=== PATIENT | male | born 1950 | race Caucasian/White ===

== ENCOUNTER 2018-10-07 06:42 | Day surgery (SDC) | payer MEDICARE, OTHER, MEDICAID ==
[2018-10-07] VITALS (7 sets, daily range): BP systolic 127–171; BP diastolic 65–88
[~2018-10-07] VITALS: Ht 188 cm; Wt 109.3 kg
[~2018-10-07 06:42] MED LIST: ASPI-10 PO; FOLI0.8T22 PO; FOLI1TAB16 PO; HYDR-3972 PO; LORA1TAB PO; PHO667C PO
[2018-10-07] MEDS ORDERED: normal saline 1000ml 1,000 ML IV SCH ×2 (07:10→08:31)
[2018-10-07] MEDS ORDERED: DOCU-28 PO (07:13)
[2018-10-07] MEDS ORDERED: ALLO100T PO (07:13)
[2018-10-07] MEDS ORDERED: SEVE800T8 PO (07:13)
[2018-10-07 08:14] LABS: ALBUMIN 3.3 G/DL (3.4-5.0); ANION GAP 11 (8-16); BLOOD UREA NITROGEN 28 MG/DL (7-18); BUN/CREATININE RATIO 3.2 (5.4-32.0); CALCIUM 8.4 MG/DL (8.5-10.1); CHLORIDE 100 MMOL/L (99-107); CREATININE 8.66 MG/DL (0.60-1.10); GLUCOSE 89 MG/DL (70-104); POTASSIUM 4.7 MMOL/L (3.5-5.1); SODIUM 141 MMOL/L (135-145); eGFR 6 ML/MIN
[2018-10-07 08:19] LABS: BASOPHILS % (AUTO) 0.3 % (0-1); EOSINOPHILS # (AUTO) 0.2 X10'3 (0-0.9); EOSINOPHILS % (AUTO) 2.2 % (0-6); LYMPHOCYTES # (AUTO) 1.6 X10'3 (1.1-4.8); LYMPHOCYTES % (AUTO) 20.1 % (21-51); MEAN CORPUSCULAR HEMOGLOBIN 31.3 PG (27.0-31.0); MEAN CORPUSCULAR HGB CONC 32.1 % (33.0-36.5); MEAN CORPUSCULAR VOLUME 97.3 FL (78-98); MEAN PLATELET VOLUME 8.1 FL (7.4-10.4); MONOCYTES # (AUTO) 0.4 X10'3 (0-0.9); MONOCYTES % (AUTO) 5.5 % (2-12); NEUTROPHILS # (AUTO) 5.9 X10'3 (1.8-7.7); NEUTROPHILS % (AUTO) 71.9 % (42-75); PRE OP HEMATOCRIT 42.5 % (42.0-52.0); PRE OP HEMOGLOBIN 13.6 g/dL (14.0-17.9); PRE OP PLATELET COUNT 202 X10'3 (140-440); RED BLOOD COUNT 4.36 X10'6 (4.70-6.10)
[2018-10-07] MEDS ORDERED: iohexol 300mg/ml 100ml inj. ONE (08:34)
[2018-10-07] MEDS ORDERED: LIDOcaine 1%/PF 5ML 10 MG/ML VIAL ONE (08:34)
[2018-10-07] MEDS ORDERED: fentaNYL/PF 50MCG/1 ML 2ML syringe IV PRN (08:35)
[2018-10-07] MEDS ORDERED: midazolam 2 mg/2 ml injection ONE (08:35)
[2018-10-07] MEDS ORDERED: midazolam 2 mg/2 ml injection IV PRN (08:35)
[2018-10-07] MEDS ORDERED: LIDOcaine 1%/PF 5ML 10 MG/ML VIAL SQ ONE (08:35)
[2018-10-07] MEDS ORDERED: fentaNYL/PF 50MCG/1 ML 2ML syringe ONE ×2 (08:36→09:23)
[2018-10-07] MEDS ORDERED: heparin 1,000 UNITS/NS 500ml 500 ML ONE (08:44)
== END 2018-10-07 11:00 | disposition home or self-care (01) ==
LOC: SSTAY O 06:42
PROVIDERS: ATTEND Radiology Vascular & Interventional Radiology
DX: T82.858A Stenosis of other vascular prosthetic devices, implants and grafts, initial encounter (principal); Y83.8 Other surgical procedures as the cause of abnormal reaction of the patient, or of later complication, without mention of misadventure at the time of the procedure; Y92.89 Other specified places as the place of occurrence of the external cause; E11.22 Type 2 diabetes mellitus with diabetic chronic kidney disease; I12.0 Hypertensive chronic kidney disease with stage 5 chronic kidney disease or end stage renal disease; N18.6 End stage renal disease; J44.9 Chronic obstructive pulmonary disease, unspecified; G89.29 Other chronic pain; I48.91 Unspecified atrial fibrillation; E66.01 Morbid (severe) obesity due to excess calories; G47.33 Obstructive sleep apnea (adult) (pediatric); M19.90 Unspecified osteoarthritis, unspecified site; H91.8X3 Other specified hearing loss, bilateral; Z68.30 Body mass index [BMI] 30.0-30.9, adult; Z87.891 Personal history of nicotine dependence; Z90.49 Acquired absence of other specified parts of digestive tract; Z88.0 Allergy status to penicillin; Z88.2 Allergy status to sulfonamides; Z91.030 Bee allergy status; Z91.013 Allergy to seafood; Z79.82 Long term (current) use of aspirin; Z79.891 Long term (current) use of opiate analgesic; Z79.899 Other long term (current) drug therapy; Z98.890 Other specified postprocedural states; Z88.8 Allergy status to other drugs, medicaments and biological substances; Z80.9 Family history of malignant neoplasm, unspecified; Z83.3 Family history of diabetes mellitus; Z82.3 Family history of stroke; Z83.1 Family history of other infectious and parasitic diseases
CPT/HCPCS: 36415; 36902; 80048; 85025; 85610; 99152; 99153; J1644; J2001; J2250; J3010; J7030; Q9967; C1725; C1769; C1894